=== PATIENT | female | born 1955 | race Caucasian/White ===

== ENCOUNTER 2021-04-09 07:53 | Inpatient (IN) | payer OTHER, MEDICARE ==
[~2021-04-09] VITALS: Ht 154.9 cm; Wt 69.4 kg
--- NOTE | 2021-04-09 08:15 | NUR ---
INITIAL CONTACT: PT W/CO/ Witnessed syncope yesterday, denies hitting head. C/o DEVRIES. Dx with bronchitis last week, completed abx. PT TO ROOM VIA WHEEL CHAIR, TO BED WITH STEADY GAIT. PT ATTACHED TO MONITORS. VSS. NADN. HINOJOSA TO BEDSIDE FOR EVALUATION.
[2021-04-09] MEDS ORDERED: ONDANSETRON 2MG/ML, 2ML IVPush ONE (08:30)
[2021-04-09] MEDS ORDERED: SODIUM CHLORIDE 0.9% 1,000ML IVBOLUS ONE (08:30)
[2021-04-09] MEDS ORDERED: ONDANSETRON 2MG/ML, 2ML ONE (08:46)
[2021-04-09 08:52] LABS: MICROSCOPIC AUTO
--- NOTE | 2021-04-09 08:53 | NUR ---
PT MEDICATE PER EMAR. VSS. NADN
[2021-04-09 09:04] LABS: BASOPHILS % (AUTO) 1 % (0-1); EOSINOPHILS % (AUTO) 1 % (1-7); LYMPHOCYTES % (AUTO) 14 % (22-44); MEAN CORPUSCULAR HEMOGLOBIN 27.3 pg (27.0-34.8); MEAN CORPUSCULAR HGB CONC 34.5 g/dL (32.4-35.8); MEAN PLATELET VOLUME 7.7 fL (7.4-10.4); MONOCYTES % (AUTO) 10 % (2-9); NEUTROPHILS % (AUTO) 75 % (42-75); PLATELET COUNT 329 x10^3/uL (130-400); RED BLOOD COUNT 4.63 x10^6/uL (3.82-5.3); RED CELL DISTRIBUTION WIDTH 14.2 % (9.6-15.2)
[2021-04-09 09:12] LABS: ALBUMIN 4.2 g/dL (3.4-5.0); ANION GAP 12 mmol/L (5-15); CALCIUM 9.8 mg/dL (8.5-10.1); CHLORIDE 86 mmol/L (98-107); CREATININE 1.13 mg/dL (0.55-1.02)
[2021-04-09 09:17] LABS: TROPONIN I < 0.015 ng/mL (0.000-0.045)
--- NOTE | 2021-04-09 09:37 | NUR ---
PT RESTING IN BED WITH FRIENDS AT BEDSIDE. NICKY
[2021-04-09 10:32] LABS: MICROSCOPIC NOT IND
[2021-04-09] MEDS ORDERED: hydrALAzine 20 MG/ML, 1ML IVPush PRN (11:00)
[2021-04-09] MEDS ORDERED: TEMAZEPAM 15 MG CAPSULE PO PRN (11:00)
[2021-04-09] MEDS ORDERED: POLYETHYLENE GLYCOL 17 GM PACKET PO PRN (11:00)
[2021-04-09] MEDS ORDERED: DOCUSATE 100 MG CAPSULE PO PRN (11:00)
[2021-04-09] MEDS ORDERED: ONDANSETRON 2MG/ML, 2ML IVPush PRN (11:00)
[2021-04-09] MEDS ORDERED: BISACODYL 10 MG SUPP PR PRN (11:00)
[2021-04-09] MEDS ORDERED: LORazepam 2 MG/ML, 1ML IVPush PRN (11:00)
[2021-04-09] MEDS ORDERED: OXYcodone IR 5MG TABLET PO PRN (11:00)
[2021-04-09] MEDS ORDERED: MELATONIN 5 MG TABLET PO PRN (11:00)
[2021-04-09] MEDS ORDERED: ACETAMINOPHEN 325 MG TABLET PO PRN (11:00)
--- NOTE | 2021-04-09 11:05 | NUR ---
REPORT CALLED TO KELLY MONTANO.
[2021-04-09 11:20] LABS: ANION GAP 9 mmol/L (5-15); CALCIUM 9.1 mg/dL (8.5-10.1); CHLORIDE 92 mmol/L (98-107)
[2021-04-09 11:21] LABS: CREATININE 1.01 mg/dL (0.55-1.02)
[2021-04-09 11:38] VITALS: BP 182/49
[2021-04-09] MEDS ORDERED: FENO54TA17 PO (12:00)
[2021-04-09] MEDS ORDERED: EMPA1TAB15 PO (12:00)
[2021-04-09] MEDS ORDERED: ATOR-2 PO (12:00)
[2021-04-09] MEDS ORDERED: ISOS30TA21 PO (12:00)
[2021-04-09] MEDS ORDERED: LISI1TAB39 PO (12:00)
[2021-04-09] MEDS ORDERED: ASPI-963 PO (12:00)
[2021-04-09] MEDS ORDERED: AMLO-150 PO (12:00)
[2021-04-09] MEDS ORDERED: LEVO112T4 PO (12:00)
[2021-04-09] MEDS ORDERED: METO50TA82 PO (12:00)
[2021-04-09] MEDS: SODIUM CHLORIDE 0.9% 1,000 ML IV SCH ×2 (12:12→20:59)
[2021-04-09 13:15] LABS: CHLORIDE,URINE RANDOM 33 mmol/L; POTASSIUM,URINE RANDOM 7 mmol/L; SODIUM,URINE RANDOM 38 mmol/L
[2021-04-09 15:23] VITALS: BP 154/68
[2021-04-09 16:13] LABS: ANION GAP 9 mmol/L (5-15); CALCIUM 8.7 mg/dL (8.5-10.1); CHLORIDE 93 mmol/L (98-107); CREATININE 1.11 mg/dL (0.55-1.02)
[2021-04-09] MEDS: INSULIN LISPRO 100 UNITS/ML, PEN SQ-INSULIN SCH ×2 (18:00→20:59)
[2021-04-09] MEDS ORDERED: AMLODIPINE 5 MG TABLET PO ONE (18:00)
[2021-04-09 18:57] VITALS: BP 155/55
[2021-04-09 19:50] VITALS: BP 168/59
[2021-04-09] MEDS: FAMOTIDINE 20 MG TABLET PO SCH (20:59)
[2021-04-09] MEDS ORDERED: ATORVASTATIN 40 MG TABLET PO SCH (21:00)
[2021-04-09 21:53] LABS: ANION GAP 9 mmol/L (5-15); CALCIUM 8.4 mg/dL (8.5-10.1); CHLORIDE 98 mmol/L (98-107); CREATININE 1.15 mg/dL (0.55-1.02)
[2021-04-10 01:33] VITALS: BP 144/53
[2021-04-10] MEDS: SODIUM CHLORIDE 0.9% 1,000 ML IV SCH ×2 (03:00→15:00)
[2021-04-10 06:09] LABS: BASOPHILS % (AUTO) 1 % (0-1); EOSINOPHILS % (AUTO) 1 % (1-7); LYMPHOCYTES % (AUTO) 28 % (22-44); MEAN CORPUSCULAR HEMOGLOBIN 27.4 pg (27.0-34.8); MEAN CORPUSCULAR HGB CONC 33.8 g/dL (32.4-35.8); MEAN PLATELET VOLUME 7.5 fL (7.4-10.4); MONOCYTES % (AUTO) 14 % (2-9); NEUTROPHILS % (AUTO) 55 % (42-75); PLATELET COUNT 264 x10^3/uL (130-400); RED BLOOD COUNT 3.95 x10^6/uL (3.82-5.3); RED CELL DISTRIBUTION WIDTH 14.5 % (9.6-15.2)
[2021-04-10 06:17] LABS: ANION GAP 8 mmol/L (5-15); CALCIUM 8.4 mg/dL (8.5-10.1); CHLORIDE 105 mmol/L (98-107); CHOLESTEROL, TOTAL 121 mg/dL (140-239); CREATININE 0.96 mg/dL (0.55-1.02)
[2021-04-10 06:20] LABS: CHOL/HDL RATIO 2.6; HDL CHOL % 39 % (28-40); HDL CHOLESTEROL (DIRECT) 47 mg/dL (40-60); LDL CHOLESTEROL,CALCULATED 54 mg/dL (54-169); LDL/HDL RATIO 1.1 (0.5-3.0); TRIGLYCERIDES 100 mg/dL (50-200); VLDL CHOLESTEROL 20 mg/dL (0-25)
[2021-04-10] MEDS: INSULIN LISPRO 100 UNITS/ML, PEN SQ-INSULIN SCH ×2 (08:30→12:41)
[2021-04-10] MEDS ORDERED: K-PHOS NEUTRAL 250MG TAB PO SCH (09:00)
[2021-04-10] MEDS ORDERED: FENOFIBRATE 54 MG TABLET PO SCH (09:00)
[2021-04-10] MEDS ORDERED: ASPIRIN 81 MG TABLET EC PO SCH (09:00)
[2021-04-10] MEDS ORDERED: METOPROLOL TARTRATE 50 MG TAB PO SCH (09:00)
[2021-04-10] MEDS ORDERED: AMLODIPINE 10 MG TAB PO SCH (09:00)
[2021-04-10] MEDS ORDERED: LEVOTHYROXINE 112 MCG TABLET PO SCH (09:00)
[2021-04-10] MEDS ORDERED: ISOSORBIDE DINITRATE 30 MG TABLET PO SCH (09:00)
[2021-04-10] MEDS: FAMOTIDINE 20 MG TABLET PO SCH (09:21)
[2021-04-10 09:50] VITALS: BP 114/67
[2021-04-10 11:43] LABS: ANION GAP 7 mmol/L (5-15); CALCIUM 8.2 mg/dL (8.5-10.1); CHLORIDE 106 mmol/L (98-107)
[2021-04-10 11:46] LABS: CREATININE 0.99 mg/dL (0.55-1.02)
[2021-04-10] MEDS ORDERED: AMLO-211 PO (13:43)
[2021-04-10 14:20] VITALS: BP 109/52
[2021-04-10 15:51] VITALS: BP 122/63
== END 2021-04-10 16:11 | disposition home or self-care (01) | DRG 641 ==
LOC: ED 08:42 → EDIP 10:23 → 5SO 11:27 → DCLOUNGE 04-10 16:00
PROVIDERS: ADMIT Internal Medicine; ATTEND Internal Medicine
PROC: 0T9B30Z Drainage of Bladder with Drainage Device, Percutaneous Approach (ICD-10-PCS; principal; 2021-04-09)
DX: E87.1 Hypo-osmolality and hyponatremia (principal); E78.5 Hyperlipidemia, unspecified; E11.51 Type 2 diabetes mellitus with diabetic peripheral angiopathy without gangrene; E86.0 Dehydration; E03.9 Hypothyroidism, unspecified; I10 Essential (primary) hypertension; J44.9 Chronic obstructive pulmonary disease, unspecified; Z79.899 Other long term (current) drug therapy
CPT/HCPCS: 36415; 71045; 80048; 80061; 81001; 81003; 82040; 82436; 82533; 82962; 83036; 83735; 83880; 83930; 83935; 84100; 84133; 84300; 84443; 84484; 85025; 93005; 96361; 96374; G0378; J2405; J7030